=== PATIENT | female | born 1935 | race Caucasian/White ===

== ENCOUNTER 2016-12-17 21:32 | Emergency (ER) | payer OTHER ==
[~2016-12-17] VITALS: Ht 162.6 cm; Wt 98.7 kg
[~2016-12-17 21:32] MED LIST: ARICEPT10 MG PO; BENAZEPRIL HCL40 MG PO; CEFTIN250 MG PO; CELEXA20 MG PO; CRESTOR10 MG PO; DAILY VALUE1 EACH PO; GLUCOPHAGE500 MG PO; HYDROCHLOROTHIA50 MG PO; KEFLEX500 MG PO; LEVAQUIN500 MG PO; LEVOFLOXACIN750 MG PO; LOTENSIN10 MG PO; LOTENSIN20 MG PO; MICROZIDE12.5 M1 PO; NORVASC5 MG PO; PAXIL20 MG PO; XANAX0.25 MG PO
[2016-12-17 22:40] LABS: HEMATOCRIT 32.5 % (36.0-46.0); MCH 31.3 PG (29.0-34.0); MCHC 34.2 G/DL (30.0-36.0); MCV 91.5 FL (83-99); PLATELET COUNT 158 K/uL (156-360); RBC DIS.WIDTH-CV 14.4 % (11.8-14.6); RBC DIS.WIDTH-SD 46.1 % (39-53); RED BLOOD COUNT 3.55 M/uL (3.80-5.20); WHITE BLOOD COUNT 7.4 K/uL (4.1-10.2)
[2016-12-17 22:54] LABS: CHLORIDE 105 mEq/L (99-109); POTASSIUM 4.2 mEq/L (3.7-5.4); SODIUM 140 mEq/L (136-147)
[2016-12-17 22:57] LABS: GLUCOSE 171 mg/dL (70-99)
[2016-12-17 22:58] LABS: ANION GAP 14 MEQ/L (2-14); TOTAL BILIRUBIN 0.4 mg/dL (0.0-1.0)
[2016-12-17 23:00] LABS: ALKALINE PHOSPHATASE 55 IU/L (3-129); GFR ESTIMATE (CALCULATED) 31 mL/min/
[2016-12-17 23:01] LABS: UREA NITROGEN (BUN) 40 mg/dL (9-23)
[2016-12-17 23:02] LABS: DIRECT BILIRUBIN 0.1 mg/dL (0.0-0.3)
[2016-12-17 23:03] LABS: TROP-I INTERPRETATION NEGATIVE; TROPONIN-I < 0.01 ng/mL (0.0-0.30)
[2016-12-17 23:21] LABS: ADD MIUA? YES; BILIRUBIN NEGATIVE; BLOOD NEGATIVE; COLOR YELLOW ((YELLOW)); GLUCOSE (STRIP) NEGATIVE; KETONES NEGATIVE; LEUKOCYTES LARGE; NITRITE POSITIVE; PROTEIN (STRIP) NEGATIVE; SPECIFIC GRAVITY 1.018 (1.000-1.030); UROBILINOGEN 0.2 MG/DL (0.2-1.0)
[2016-12-17 23:59] LABS: BACTERIA 3+; CASTS NONE SEEN /LPF; CRYSTALS NONE SEEN; EPITHELIAL CELLS 1+; MUCUS 1+; RED BLOOD CELLS NONE SEEN /HPF (0-5); UCUL ADDED? YES; WHITE BLOOD CELLS TNTC /HPF (0-5)
[2016-12-18] MEDS ORDERED: LEVAQUIN500 MG PO (02:05)
[2016-12-18 03:42] VITALS: BP 117/52
== END 2016-12-18 03:44 | disposition home or self-care (01) ==
LOC: EME 21:32
PROVIDERS: Emergency Medicine
DX: N30.00 Acute cystitis without hematuria (principal); E86.0 Dehydration; J40 Bronchitis, not specified as acute or chronic; N28.9 Disorder of kidney and ureter, unspecified; F03.90 Unspecified dementia, unspecified severity, without behavioral disturbance, psychotic disturbance, mood disturbance, and anxiety; I10 Essential (primary) hypertension; E78.5 Hyperlipidemia, unspecified
CPT/HCPCS: 70450; 71020; 80048; 80076; 81003; 83880; 84484; 85027; 87077; 87086; 87186; 93005; 94640; 99281; 99285; J1200; J7030

== ENCOUNTER 2017-01-17 19:46 | Emergency (ER) | payer OTHER ==
[~2017-01-17] VITALS: Ht 162.6 cm; Wt 98.2 kg
[2017-01-17 20:56] LABS: BASOPHIL COUNT 0.1 K/uL (0-0.1); EOSINOPHIL (%) 8.4 % (0-5); EOSINOPHIL COUNT 0.6 K/uL (0-0.3); HEMATOCRIT 31.6 % (36.0-46.0); IMMATURE GRANULOCYTE (%) 1.4 % (0.0-0.7); IMMATURE GRANULOCYTE COUNT 1.1 K/uL; LYMPHOCYTE COUNT 1.8 K/uL (1.0-2.8); MCH 31.2 PG (29.0-34.0); MCHC 34.2 G/DL (30.0-36.0); MCV 91.3 FL (83-99); MEAN PLAT.VOLUME 10.1 uM^3 (9.5-12.4); MONOCYTE (%) 6.4 % (3-12); MONOCYTE COUNT 0.5 K/uL (0-0.8); NEUTROPHIL (%) 58.8 % (45-76); NEUTROPHIL COUNT 4.5 K/uL (1.8-6.4); PLATELET COUNT 159 K/uL (156-360); RBC DIS.WIDTH-CV 14.3 % (11.8-14.6); RBC DIS.WIDTH-SD 45.1 % (39-53); RED BLOOD COUNT 3.46 M/uL (3.80-5.20); WHITE BLOOD COUNT 7.6 K/uL (4.1-10.2)
[2017-01-17 21:08] LABS: CHLORIDE 106 mEq/L (99-109); POTASSIUM 4.2 mEq/L (3.7-5.4); SODIUM 140 mEq/L (136-147)
[2017-01-17 21:10] LABS: GLUCOSE 181 mg/dL (70-99)
[2017-01-17 21:12] LABS: ANION GAP 11 MEQ/L (2-14); TOTAL BILIRUBIN 0.1 mg/dL (0.0-1.0)
[2017-01-17 21:14] LABS: ALKALINE PHOSPHATASE 61 IU/L (3-129); GFR ESTIMATE (CALCULATED) 50 mL/min/
[2017-01-17 21:15] LABS: UREA NITROGEN (BUN) 28 mg/dL (9-23)
[2017-01-17 21:19] LABS: TROP-I INTERPRETATION NEGATIVE; TROPONIN-I < 0.01 ng/mL (0.0-0.30)
[2017-01-17 23:21] VITALS: BP 98/53
== END 2017-01-17 23:21 | disposition home or self-care (01) ==
LOC: EME 19:46
PROVIDERS: Emergency Medicine
DX: R79.1 Abnormal coagulation profile (principal); R06.00 Dyspnea, unspecified; F03.90 Unspecified dementia, unspecified severity, without behavioral disturbance, psychotic disturbance, mood disturbance, and anxiety; E78.5 Hyperlipidemia, unspecified; I10 Essential (primary) hypertension; Z88.1 Allergy status to other antibiotic agents
CPT/HCPCS: 71275; 80053; 84484; 85025; 93005; 99281; 99285; J7040

== ENCOUNTER 2017-03-29 20:38 | Inpatient (IN) | payer OTHER ==
[~2017-03-29] VITALS: Ht 165.1 cm; Wt 95.5 kg
[2017-03-29 21:23] LABS: BASOPHIL COUNT 0.1 K/uL (0-0.1); EOSINOPHIL (%) 6.2 % (0-5); EOSINOPHIL COUNT 0.6 K/uL (0-0.3); HEMATOCRIT 40.6 % (36.0-46.0); IMMATURE GRANULOCYTE (%) 1.8 % (0.0-0.7); IMMATURE GRANULOCYTE COUNT 0.2 K/uL; INSTRUMENT ABS NEUTROPHIL CT 6.8 K/uL; LYMPHOCYTE COUNT 1.5 K/uL (1.0-2.8); MCH 31.3 PG (29.0-34.0); MCHC 34.5 G/DL (30.0-36.0); MCV 90.6 FL (83-99); MEAN PLAT.VOLUME 10.1 uM^3 (9.5-12.4); MONOCYTE (%) 7.6 % (3-12); MONOCYTE COUNT 0.8 K/uL (0-0.8); NEUTROPHIL (%) 68.8 % (45-76); NEUTROPHIL COUNT 6.8 K/uL (1.8-6.4); PLATELET COUNT 200 K/uL (156-360); RBC DIS.WIDTH-CV 13.9 % (11.8-14.6); RBC DIS.WIDTH-SD 46.3 % (39-53); RED BLOOD COUNT 4.48 M/uL (3.80-5.20); WHITE BLOOD COUNT 9.9 K/uL (4.1-10.2)
[2017-03-29 21:31] LABS: CHLORIDE 100 mEq/L (99-109); POTASSIUM 4.7 mEq/L (3.7-5.4); SODIUM 133 mEq/L (136-147)
[2017-03-29 21:33] LABS: GLUCOSE 169 mg/dL (70-99)
[2017-03-29 21:34] LABS: ANION GAP 13 MEQ/L (2-14)
[2017-03-29 21:37] LABS: GFR ESTIMATE (CALCULATED) 24 mL/min/
[2017-03-29 21:38] LABS: UREA NITROGEN (BUN) 34 mg/dL (9-23)
[2017-03-29 21:42] LABS: Estimated Average Glucose 143 mg/dL (70-123); HEMOGLOBIN A1c (GLYCOHEMOGLOB) 6.6 % HGB (Below 5.7)
[2017-03-29 21:44] LABS: TROP-I INTERPRETATION NEGATIVE; TROPONIN-I < 0.01 ng/mL (0.0-0.30)
[2017-03-29 21:51] LABS: INTER. NORMALIZED RATIO 1.1; PTT 25.8 (25-32)
[2017-03-29 21:57] LABS: HDL CHOLESTEROL 36 MG/DL (Desirable>=50); LDL CHOLESTEROL 71 mg/dL (Desirable<100); NON-HDL CHOLESTEROL 126 mg/dL (Desirable<160); TOTAL CHOLESTEROL 162 mg/dL (Desirable<200); TRIGLYCERIDES 276 MG/DL (Normal: <150)
[2017-03-29 22:59] LABS: ADD MIUA? YES; BILIRUBIN SMALL; BLOOD LARGE; COLOR AMBER ((YELLOW)); GLUCOSE (STRIP) NEGATIVE; KETONES NEGATIVE; LEUKOCYTES MODERATE; NITRITE NEGATIVE; PROTEIN (STRIP) 100; SPECIFIC GRAVITY 1.019 (1.000-1.030)
[2017-03-29 23:17] LABS: RED BLOOD CELLS 30-40 /HPF (0-5); WHITE BLOOD CELLS TNTC /HPF (0-5)
[2017-03-29 23:18] LABS: BACTERIA 3+ /HPF; MUCUS NONE SEEN /LPF; UCUL ADDED? YES
[2017-03-29 23:19] LABS: CASTS NONE SEEN /LPF; CRYSTALS NONE SEEN; EPITHELIAL CELLS 1+ /HPF
[2017-03-30] VITALS (7 sets, daily range): BP systolic 98–142; BP diastolic 56–78
[2017-03-30] MEDS ORDERED: LISINOPRIL5 MG PO (00:45)
[2017-03-30] MEDS ORDERED: HYDROCHLOROTHIA25 MG PO (00:45)
[2017-03-30] MEDS ORDERED: PROCTOZONE-HC30 GM PR (00:46)
[2017-03-30] MEDS ORDERED: ROSUVASTATIN CA10 MG PO (00:47)
[2017-03-30] MEDS ORDERED: PROMETHAZINE12.5 M1 PO (00:49)
[2017-03-30] MEDS ORDERED: VENTOLIN HFA18 GM IH (00:50)
[2017-03-30] MEDS ORDERED: SILTUSSIN100 MG/51 PO (00:51)
[2017-03-30] MEDS ORDERED: CRANBERRY450 M1 PO (01:32)
[2017-03-30 05:40] LABS: TROP-I INTERPRETATION NEGATIVE; TROPONIN-I < 0.01 ng/mL (0.0-0.30)
[2017-03-30 07:50] LABS: METH RESISTANT S AUREUS PCR POSITIVE (NEGATIVE)
[2017-03-30 07:51] LABS: PROBE CHECK PASS
[2017-03-30 14:16] LABS: TROP-I INTERPRETATION NEGATIVE; TROPONIN-I < 0.01 ng/mL (0.0-0.30)
[2017-03-30 22:14] LABS: TROP-I INTERPRETATION NEGATIVE; TROPONIN-I < 0.01 ng/mL (0.0-0.30)
[2017-03-31 04:06] VITALS: BP 128/60
[2017-03-31 06:46] LABS: ANION GAP 10 MEQ/L (2-14); CHLORIDE 104 MEQ/L (99-109); GFR ESTIMATE (CALCULATED) 33 mL/min/; GLUCOSE 134 mg/dL (70-99); POTASSIUM 4.6 MEQ/L (3.7-5.4); SAMPLE HEMOLYSIS CHECK 0; SAMPLE ICTERIC CHECK 0; SAMPLE LIPEMIA CHECK 0; SODIUM 135 MEQ/L (136-147); UREA NITROGEN (BUN) 37 mg/dL (9-23)
[2017-03-31 07:50] VITALS: BP 133/59
[2017-03-31 12:08] VITALS: BP 93/42
[2017-03-31 16:39] VITALS: BP 137/56
[2017-03-31 17:06] LABS: POINT-OF-CARE METER ID UU14174216
[2017-03-31 20:00] VITALS: BP 119/67
[2017-03-31 23:32] VITALS: BP 139/65
[2017-04-01 05:44] VITALS: BP 145/73
[2017-04-01 07:24] VITALS: BP 124/62
[2017-04-01 07:28] LABS: ANION GAP 10 MEQ/L (2-14); CHLORIDE 104 MEQ/L (99-109); GFR ESTIMATE (CALCULATED) 42 mL/min/; GLUCOSE 127 mg/dL (70-99); POTASSIUM 4.6 MEQ/L (3.7-5.4); SAMPLE HEMOLYSIS CHECK 0; SAMPLE ICTERIC CHECK 0; SAMPLE LIPEMIA CHECK 0; SODIUM 136 MEQ/L (136-147); UREA NITROGEN (BUN) 33 mg/dL (9-23)
[2017-04-01 11:45] VITALS: BP 112/58
[2017-04-01 15:20] VITALS: BP 150/69
[2017-04-01 21:30] VITALS: BP 108/66
[2017-04-02 01:04] VITALS: BP 133/76
[2017-04-02 04:45] VITALS: BP 143/84
[2017-04-02 08:45] VITALS: BP 140/70
[2017-04-02 12:15] VITALS: BP 140/74
[2017-04-02 12:17] LABS: POINT-OF-CARE METER ID UU14174216
[2017-04-02 16:14] VITALS: BP 159/68
[2017-04-02 19:00] VITALS: BP 142/68
[2017-04-02 20:56] LABS: POINT-OF-CARE METER ID UU14174216; POINT-OF-CARE USER ID ENVMNS
[2017-04-03 00:21] VITALS: BP 146/88
[2017-04-03 05:11] VITALS: BP 138/60
[2017-04-03 07:58] LABS: POINT-OF-CARE METER ID UU13113781
[2017-04-03 16:00] VITALS: BP 126/61
[2017-04-03 19:48] VITALS: BP 122/64
[2017-04-03 20:51] LABS: POINT-OF-CARE METER ID UU13113781
[2017-04-03 23:25] VITALS: BP 120/76
[2017-04-04 05:02] VITALS: BP 116/56
[2017-04-04 07:47] LABS: POINT-OF-CARE USER ID NUTSLF44
[2017-04-04 08:00] LABS: ANION GAP 9 MEQ/L (2-14); CHLORIDE 102 MEQ/L (99-109); GFR ESTIMATE (CALCULATED) 56 mL/min/; GLUCOSE 124 mg/dL (70-99); POTASSIUM 4.7 MEQ/L (3.7-5.4); SAMPLE HEMOLYSIS CHECK 0; SAMPLE ICTERIC CHECK 0; SAMPLE LIPEMIA CHECK 0; SODIUM 137 MEQ/L (136-147); UREA NITROGEN (BUN) 32 mg/dL (9-23)
[2017-04-04 08:48] VITALS: BP 131/67
[2017-04-04 11:35] LABS: POINT-OF-CARE METER ID UU13113781; POINT-OF-CARE USER ID NUTSLF44
== END 2017-04-04 13:00 | disposition home or self-care (01) | DRG 690 ==
LOC: EME → EDBD 20:38 → EME 20:38 → 4EAST 03-30 00:44 → EDOF 03-30 00:44 → 4EAST 03-30 01:48
PROVIDERS: Emergency Medicine; Internal Medicine
DX: N30.90 Cystitis, unspecified without hematuria (principal); N17.9 Acute kidney failure, unspecified; J44.9 Chronic obstructive pulmonary disease, unspecified; G30.9 Alzheimer's disease, unspecified; F02.80 Dementia in other diseases classified elsewhere, unspecified severity, without behavioral disturbance, psychotic disturbance, mood disturbance, and anxiety; I10 Essential (primary) hypertension; B96.20 Unspecified Escherichia coli [E. coli] as the cause of diseases classified elsewhere; F32.9 Major depressive disorder, single episode, unspecified; Z22.322 Carrier or suspected carrier of Methicillin resistant Staphylococcus aureus; Z91.81 History of falling; E11.9 Type 2 diabetes mellitus without complications; R00.1 Bradycardia, unspecified
CPT/HCPCS: 70450; 71020; 80048; 80061; 81003; 82948; 83036; 83880; 84484; 85025; 85610; 85730; 87077; 87086; 87186; 87641; 93005; 94640; 99202; 99281; 99285; J0696; J1650; J1815; J7050; J7644

== ENCOUNTER 2017-04-12 22:40 | Inpatient (IN) | payer OTHER ==
[~2017-04-12] VITALS: Ht 165.1 cm; Wt 98.4 kg
[~2017-04-12 22:40] MED LIST changes: +CRANBERRY450 M1 PO; +HYDROCHLOROTHIA25 MG PO; +LISINOPRIL5 MG PO; +PROCTOZONE-HC30 GM PR; +PROMETHAZINE12.5 M1 PO; +ROSUVASTATIN CA10 MG PO; +SILTUSSIN100 MG/51 PO; +VENTOLIN HFA18 GM IH
[2017-04-12 23:53] LABS: PROTHROMBIN TIME 10.4 (9.2-11.2)
[2017-04-12 23:56] LABS: CHLORIDE 100 mEq/L (99-109); POTASSIUM 4.2 mEq/L (3.7-5.4); SODIUM 135 mEq/L (136-147)
[2017-04-12 23:58] LABS: GLUCOSE 155 mg/dL (70-99); HEMATOCRIT 35.1 % (36.0-46.0); MCHC 33.6 G/DL (30.0-36.0); MCV 92.1 FL (83-99); RBC DIS.WIDTH-CV 13.8 % (11.8-14.6); RBC DIS.WIDTH-SD 47.4 % (39-53); RED BLOOD COUNT 3.81 M/uL (3.80-5.20)
[2017-04-12 23:59] LABS: WHITE BLOOD COUNT 13.3 K/uL (4.1-10.2)
[2017-04-13] VITALS (7 sets, daily range): BP systolic 103–162; BP diastolic 54–106
[2017-04-13] LABS: ANION GAP 11 MEQ/L (2-14); TOTAL BILIRUBIN 0.5 mg/dL (0.0-1.0)
[2017-04-13 00:02] LABS: ALKALINE PHOSPHATASE 57 IU/L (3-129); GFR ESTIMATE (CALCULATED) 50 mL/min/
[2017-04-13 00:03] LABS: UREA NITROGEN (BUN) 26 mg/dL (9-23)
[2017-04-13 00:04] LABS: TROP-I INTERPRETATION NEGATIVE; TROPONIN-I < 0.01 ng/mL (0.0-0.30)
[2017-04-13 00:05] LABS: LIPASE 25 U/L (1.0-51.0)
[2017-04-13 00:30] LABS: PLATELET CLUMPS PRESENT - PLATELET COUNT APPEARS ADQ.
[2017-04-13 00:47] LABS: PLATELET COUNT UNABLE TO REPORT K/uL (156-360)
[2017-04-13 01:01] LABS: ADD MIUA? YES; BILIRUBIN NEGATIVE; BLOOD SMALL; COLOR YELLOW ((YELLOW)); GLUCOSE (STRIP) NEGATIVE; KETONES NEGATIVE; LEUKOCYTES LARGE; NITRITE NEGATIVE; PROTEIN (STRIP) 30; SPECIFIC GRAVITY 1.013 (1.000-1.030); UROBILINOGEN 0.2 MG/DL (0.2-1.0)
[2017-04-13 01:24] LABS: BACTERIA RARE /HPF; EPITHELIAL CELLS RARE /HPF; MUCUS TRACE /LPF; RED BLOOD CELLS 0-5 /HPF (0-5); UCUL ADDED? YES; WHITE BLOOD CELLS TNTC /HPF (0-5); WHITE BLOOD CELLS CLUMP FEW /HPF (0-5)
[2017-04-13] MEDS ORDERED: HYDROCHLOROTHIA25 MG PO (04:53)
[2017-04-13] MEDS ORDERED: LIDEX 0.05% OIN15 GM TP (04:54)
[2017-04-13 07:29] LABS: METH RESISTANT S AUREUS PCR POSITIVE (NEGATIVE); PROBE CHECK PASS
[2017-04-13 10:19] LABS: D-DIMER ELISA 1.04 mg/L FEU (< 0.57)
[2017-04-13 10:28] LABS: POINT-OF-CARE METER ID UU14149397
[2017-04-14 03:37] VITALS: BP 102/53
[2017-04-14 05:54] LABS: HEMATOCRIT 30.2 % (36.0-46.0); MCH 30.9 PG (29.0-34.0); MCHC 33.4 G/DL (30.0-36.0); MCV 92.4 FL (83-99); MEAN PLAT.VOLUME 10.7 uM^3 (9.5-12.4); RBC DIS.WIDTH-CV 13.9 % (11.8-14.6); RBC DIS.WIDTH-SD 47.3 % (39-53); RED BLOOD COUNT 3.27 M/uL (3.80-5.20); WHITE BLOOD COUNT 13.5 K/uL (4.1-10.2)
[2017-04-14 06:34] LABS: PLATELET COUNT 109 K/uL (156-360)
[2017-04-14 06:43] LABS: POINT-OF-CARE METER ID UU14149397
[2017-04-14 07:00] LABS: ALKALINE PHOSPHATASE 39 IU/L (3-129); ANION GAP 12 MEQ/L (2-14); CHLORIDE 100 MEQ/L (99-109); GFR ESTIMATE (CALCULATED) 46 mL/min/; GLUCOSE 193 mg/dL (70-99); POTASSIUM 4.3 MEQ/L (3.7-5.4); SAMPLE HEMOLYSIS CHECK 1; SAMPLE ICTERIC CHECK 0; SAMPLE LIPEMIA CHECK 0; SODIUM 133 MEQ/L (136-147); TOTAL BILIRUBIN 0.4 MG/DL (0.0-1.0); UREA NITROGEN (BUN) 34 mg/dL (9-23)
[2017-04-14 08:30] VITALS: BP 129/60
[2017-04-14 12:14] VITALS: BP 130/61
[2017-04-14 12:23] LABS: POINT-OF-CARE METER ID UU14149397
[2017-04-14 16:13] VITALS: BP 145/63
[2017-04-14 19:46] VITALS: BP 153/71
[2017-04-14 21:43] LABS: POINT-OF-CARE METER ID UU14149397
[2017-04-15] VITALS (7 sets, daily range): BP systolic 135–148; BP diastolic 65–87
[2017-04-15 07:46] LABS: POINT-OF-CARE METER ID UU14149397
[2017-04-15 12:00] LABS: POINT-OF-CARE METER ID UU14149397
[2017-04-16 03:44] VITALS: BP 142/83
[2017-04-16 07:57] VITALS: BP 184/89
[2017-04-16] MEDS ORDERED: PEN-VEE K,VEET250 MG PO (08:12)
[2017-04-16] MEDS ORDERED: PREDNISONE10 MG PO (08:12)
[2017-04-16 11:08] VITALS: BP 132/74
[2017-04-16 11:35] LABS: POINT-OF-CARE METER ID UU14188577
== END 2017-04-16 16:14 | disposition home or self-care (01) | DRG 871 ==
LOC: EME 22:40 → 3EAST 04-13 02:30 → EDOF 04-13 02:30 → 3EAST 04-13 03:38
PROVIDERS: Emergency Medicine; Internal Medicine
DX: A41.9 Sepsis, unspecified organism (principal); N39.0 Urinary tract infection, site not specified; E87.2 Acidosis; J18.9 Pneumonia, unspecified organism; J44.1 Chronic obstructive pulmonary disease with (acute) exacerbation; F03.90 Unspecified dementia, unspecified severity, without behavioral disturbance, psychotic disturbance, mood disturbance, and anxiety; I10 Essential (primary) hypertension; E78.5 Hyperlipidemia, unspecified; B95.2 Enterococcus as the cause of diseases classified elsewhere; E11.9 Type 2 diabetes mellitus without complications; R41.82 Altered mental status, unspecified; F32.9 Major depressive disorder, single episode, unspecified; N30.91 Cystitis, unspecified with hematuria; G30.9 Alzheimer's disease, unspecified; F02.80 Dementia in other diseases classified elsewhere, unspecified severity, without behavioral disturbance, psychotic disturbance, mood disturbance, and anxiety; Z87.891 Personal history of nicotine dependence
CPT/HCPCS: 70450; 71010; 71275; 76770; 80053; 81003; 82565; 82948; 83605; 83690; 83880; 84484; 85027; 85379; 85610; 85730; 87040; 87077; 87086; 87186; 87641; 93005; 99202; 99281; 99284; J0696; J1815; J2543; J2920; J2930; J3370; J7030; J7050; J7512

== ENCOUNTER 2017-05-01 16:37 | Inpatient (IN) | payer OTHER ==
[~2017-05-01] VITALS: Ht 162.6 cm; Wt 100.1 kg
[~2017-05-01 16:37] MED LIST changes: +LIDEX 0.05% OIN15 GM TP; +PEN-VEE K,VEET250 MG PO; +PREDNISONE10 MG PO
[2017-05-01 17:02] LABS: POINT-OF-CARE METER ID UU13113702
[2017-05-01 17:21] LABS: ADD MIUA? YES; BILIRUBIN NEGATIVE; BLOOD NEGATIVE; COLOR YELLOW ((YELLOW)); GLUCOSE (STRIP) NEGATIVE; KETONES 5; LEUKOCYTES MODERATE; NITRITE NEGATIVE; PROTEIN (STRIP) 100; UROBILINOGEN 0.2 MG/DL (0.2-1.0)
[2017-05-01 17:24] LABS: BACTERIA 3+ /HPF; EPITHELIAL CELLS RARE /HPF; HYALINE CASTS 15-20 /LPF; MUCUS TRACE /LPF; UCUL ADDED? YES; WHITE BLOOD CELLS TNTC /HPF (0-5); WHITE BLOOD CELLS CLUMP FEW /HPF (0-5)
[2017-05-01] MEDS ORDERED: HYDROCORTISONE30 G2 TP (18:13)
[2017-05-01] MEDS ORDERED: HYDROXYZINE HCL25 MG PO (18:16)
[2017-05-01] MEDS ORDERED: LIDEX 0.05% CRE60 GM TP (18:16)
[2017-05-01 19:04] LABS: EOSINOPHIL (%) 0.1 % (0-5); HEMATOCRIT 30.8 % (36.0-46.0); IMMATURE GRANULOCYTE (%) 2.5 % (0.0-0.7); IMMATURE GRANULOCYTE COUNT 0.4 K/uL; INSTRUMENT ABS NEUTROPHIL CT 14.7 K/uL; LYMPHOCYTE COUNT 0.7 K/uL (1.0-2.8); MCH 30.7 PG (29.0-34.0); MCHC 33.4 G/DL (30.0-36.0); MCV 91.9 FL (83-99); MEAN PLAT.VOLUME 9.9 uM^3 (9.5-12.4); MONOCYTE (%) 4.9 % (3-12); MONOCYTE COUNT 0.8 K/uL (0-0.8); NEUTROPHIL (%) 88.1 % (45-76); NEUTROPHIL COUNT 14.7 K/uL (1.8-6.4); PLATELET COUNT 117 K/uL (156-360); RBC DIS.WIDTH-CV 13.6 % (11.8-14.6); RBC DIS.WIDTH-SD 45.7 % (39-53); RED BLOOD COUNT 3.35 M/uL (3.80-5.20); WHITE BLOOD COUNT 16.7 K/uL (4.1-10.2)
[2017-05-01 19:17] LABS: INTER. NORMALIZED RATIO 1.2; PTT 29.4 (25-32)
[2017-05-01 19:26] LABS: TROP-I INTERPRETATION NEGATIVE; TROPONIN-I 0.01 ng/mL (0.0-0.30)
[2017-05-01 19:28] LABS: CHLORIDE 104 mEq/L (99-109); POTASSIUM 4.1 mEq/L (3.7-5.4); SODIUM 140 mEq/L (136-147)
[2017-05-01 19:30] LABS: GLUCOSE 240 mg/dL (70-99)
[2017-05-01 19:31] LABS: ANION GAP 13 MEQ/L (2-14)
[2017-05-01 19:32] LABS: TOTAL BILIRUBIN 0.9 mg/dL (0.0-1.0)
[2017-05-01 19:34] LABS: ALKALINE PHOSPHATASE 45 IU/L (3-129); GFR ESTIMATE (CALCULATED) 33 mL/min/
[2017-05-01 19:35] LABS: UREA NITROGEN (BUN) 23 mg/dL (9-23)
[2017-05-01 19:37] LABS: LIPASE 4 U/L (1.0-51.0)
[2017-05-01 20:37] VITALS: BP 130/85
[2017-05-01 20:41] VITALS: BP 130/85
[2017-05-01 22:50] LABS: BASE EXCESS -5.2 mEq/L (-3 to +3); BICARBONATE 18.6 mEq/L (22-26); CARBOXY HGB 2.1 % (0-5); METHEMOGLOBIN 1.4 % (0-1.5); PCO2 30 mm Hg (35-45); PO2 80 mm Hg (80-100)
[2017-05-01 22:51] LABS: COMMENTS - BLOOD GASES C+A+; DEVICE NC; O2 FLOW 2 L/MIN; SITE RR
[2017-05-01 23:34] VITALS: BP 103/51
[2017-05-01 23:53] LABS: POINT-OF-CARE METER ID UU13113725; POINT-OF-CARE USER ID STWHLR41
[2017-05-02 01:30] VITALS: BP 102/60
[2017-05-02 06:19] LABS: ALKALINE PHOSPHATASE 51 IU/L (3-129); ANION GAP 15 MEQ/L (2-14); CHLORIDE 106 MEQ/L (99-109); GFR ESTIMATE (CALCULATED) 23 mL/min/; GLUCOSE 302 mg/dL (70-99); POTASSIUM 4.1 MEQ/L (3.7-5.4); SAMPLE HEMOLYSIS CHECK 0; SAMPLE ICTERIC CHECK 0; SAMPLE LIPEMIA CHECK 0; SODIUM 141 MEQ/L (136-147); TOTAL BILIRUBIN 0.8 MG/DL (0.0-1.0); UREA NITROGEN (BUN) 31 mg/dL (9-23)
[2017-05-02 06:56] LABS: HEMATOCRIT 30.9 % (36.0-46.0); MCH 32.1 PG (29.0-34.0); MCHC 34.6 G/DL (30.0-36.0); MCV 92.8 FL (83-99); MEAN PLAT.VOLUME 11.4 uM^3 (9.5-12.4); PLATELET COUNT 95 K/uL (156-360); RBC DIS.WIDTH-SD 47.5 % (39-53); RED BLOOD COUNT 3.33 M/uL (3.80-5.20); WHITE BLOOD COUNT 19.3 K/uL (4.1-10.2)
[2017-05-02 07:24] LABS: METH RESISTANT S AUREUS PCR POSITIVE (NEGATIVE)
[2017-05-02 07:25] VITALS: BP 110/57
[2017-05-02 07:27] LABS: PROBE CHECK PASS
[2017-05-02 11:50] LABS: POINT-OF-CARE METER ID UU13113725
[2017-05-02 15:20] VITALS: BP 112/59
[2017-05-02 17:08] LABS: POINT-OF-CARE METER ID UU13113725
[2017-05-02 20:43] LABS: POINT-OF-CARE METER ID UU13113725
[2017-05-02 22:16] VITALS: BP 107/55
[2017-05-03 05:31] LABS: POINT-OF-CARE METER ID UU13113725
[2017-05-03 07:15] LABS: HEMATOCRIT 26.1 % (36.0-46.0); MCH 31.7 PG (29.0-34.0); MCHC 33.7 G/DL (30.0-36.0); MCV 93.9 FL (83-99); MEAN PLAT.VOLUME 11.3 uM^3 (9.5-12.4); PLATELET COUNT 77 K/uL (156-360); RBC DIS.WIDTH-CV 14.2 % (11.8-14.6); RBC DIS.WIDTH-SD 48.3 % (39-53); RED BLOOD COUNT 2.78 M/uL (3.80-5.20)
[2017-05-03 07:25] VITALS: BP 121/63
[2017-05-03 08:04] LABS: ABS NEUTROPHIL COUNT 10.5; BURR CELLS 3+; EOSINOPHIL ABS CT 0; INSTRUMENT ABS NEUTROPHIL CT 8.9 K/uL; LYMPHOCYTES 3.5 % (15.0-45.0); OVALOCYTES 1+; PLAT.SUFFICIENCY DECREASED; POIKILOCYTOSIS 3+; SEG.NEUTROPHILS 88.6 % (46.0-76.0)
[2017-05-03 08:24] LABS: ALKALINE PHOSPHATASE 44 IU/L (3-129); ANION GAP 11 MEQ/L (2-14); CHLORIDE 104 MEQ/L (99-109); GFR ESTIMATE (CALCULATED) 25 mL/min/; GLUCOSE 287 mg/dL (70-99); POTASSIUM 4.4 MEQ/L (3.7-5.4); SAMPLE HEMOLYSIS CHECK 0; SAMPLE ICTERIC CHECK 0; SAMPLE LIPEMIA CHECK 0; SODIUM 137 MEQ/L (136-147); UREA NITROGEN (BUN) 43 mg/dL (9-23)
[2017-05-03 08:30] LABS: TOTAL BILIRUBIN 0.4 MG/DL (0.0-1.0)
[2017-05-03 12:07] LABS: POINT-OF-CARE METER ID UU13113725
[2017-05-03 13:34] LABS: ANION GAP 19 MEQ/L (2-14); CHLORIDE 99 mEq/L (99-109); CREATININE 1.5 mg/dL (0.6-1.3); GLUCOSE 288 mg/dL (70-99); ISTAT DEVICE 369301; POTASSIUM > 6.0 mEq/L (3.7-5.4); SODIUM 135 mEq/L (136-147); UREA NITROGEN (BUN) 34 mg/dL (9-23)
[2017-05-03 21:12] LABS: POINT-OF-CARE METER ID UU13113725
[2017-05-03 22:58] VITALS: BP 136/70
[2017-05-04 06:33] LABS: EOSINOPHIL (%) 0 % (0-5); HEMATOCRIT 27.4 % (36.0-46.0); IMMATURE GRANULOCYTE (%) 3.7 % (0.0-0.7); IMMATURE GRANULOCYTE COUNT 0.4 K/uL; INSTRUMENT ABS NEUTROPHIL CT 9.7 K/uL; LYMPHOCYTE COUNT 0.5 K/uL (1.0-2.8); MCH 30.4 PG (29.0-34.0); MCHC 32.8 G/DL (30.0-36.0); MCV 92.6 FL (83-99); MEAN PLAT.VOLUME 11.6 uM^3 (9.5-12.4); MONOCYTE (%) 2.5 % (3-12); MONOCYTE COUNT 0.3 K/uL (0-0.8); NEUTROPHIL (%) 88.8 % (45-76); NEUTROPHIL COUNT 9.7 K/uL (1.8-6.4); PLATELET COUNT 88 K/uL (156-360); RBC DIS.WIDTH-SD 47.9 % (39-53); RED BLOOD COUNT 2.96 M/uL (3.80-5.20); WHITE BLOOD COUNT 10.9 K/uL (4.1-10.2)
[2017-05-04 07:00] LABS: ANION GAP 8 MEQ/L (2-14); CHLORIDE 108 MEQ/L (99-109); GFR ESTIMATE (CALCULATED) 29 mL/min/; GLUCOSE 185 mg/dL (70-99); POTASSIUM 4.3 MEQ/L (3.7-5.4); SAMPLE HEMOLYSIS CHECK 0; SAMPLE ICTERIC CHECK 0; SAMPLE LIPEMIA CHECK 0; SODIUM 140 MEQ/L (136-147); UREA NITROGEN (BUN) 49 mg/dL (9-23)
[2017-05-04 07:03] LABS: ALKALINE PHOSPHATASE 44 IU/L (3-129); ANION GAP 8 MEQ/L (2-14); CHLORIDE 108 MEQ/L (99-109); GFR ESTIMATE (CALCULATED) 31 mL/min/; GLUCOSE 181 mg/dL (70-99); POTASSIUM 4.3 MEQ/L (3.7-5.4); SAMPLE HEMOLYSIS CHECK 0; SAMPLE ICTERIC CHECK 0; SAMPLE LIPEMIA CHECK 0; SODIUM 138 MEQ/L (136-147); TOTAL BILIRUBIN 0.4 MG/DL (0.0-1.0); UREA NITROGEN (BUN) 49 mg/dL (9-23)
[2017-05-04 08:09] VITALS: BP 163/77
[2017-05-04 17:16] VITALS: BP 174/77
[2017-05-04 21:55] LABS: POINT-OF-CARE METER ID UU13113725
[2017-05-05] VITALS: BP 136/90
[2017-05-05 06:37] LABS: POINT-OF-CARE METER ID UU13113725
[2017-05-05 07:34] LABS: ANION GAP 10 MEQ/L (2-14); CHLORIDE 107 MEQ/L (99-109); GFR ESTIMATE (CALCULATED) 38 mL/min/; GLUCOSE 225 mg/dL (70-99); POTASSIUM 4.2 MEQ/L (3.7-5.4); SAMPLE HEMOLYSIS CHECK 0; SAMPLE ICTERIC CHECK 0; SAMPLE LIPEMIA CHECK 0; SODIUM 137 MEQ/L (136-147); UREA NITROGEN (BUN) 51 mg/dL (9-23)
[2017-05-05 07:55] VITALS: BP 182/81
[2017-05-05 12:49] LABS: POINT-OF-CARE METER ID UU13113725
[2017-05-05 17:57] VITALS: BP 190/81
[2017-05-05 20:56] VITALS: BP 144/70
[2017-05-05 21:45] LABS: POINT-OF-CARE METER ID UU13113725
[2017-05-06 00:05] VITALS: BP 160/72
[2017-05-06 07:02] VITALS: BP 158/74
[2017-05-06 07:19] LABS: ANION GAP 11 MEQ/L (2-14); CHLORIDE 106 MEQ/L (99-109); POTASSIUM 4.1 MEQ/L (3.7-5.4); SAMPLE HEMOLYSIS CHECK 0; SAMPLE ICTERIC CHECK 0; SAMPLE LIPEMIA CHECK 0; SODIUM 136 MEQ/L (136-147)
[2017-05-06 07:24] LABS: GFR ESTIMATE (CALCULATED) 46 mL/min/; GLUCOSE 261 mg/dL (70-99); UREA NITROGEN (BUN) 46 mg/dL (9-23)
[2017-05-06 11:08] LABS: POINT-OF-CARE METER ID UU13113725
[2017-05-06 16:00] VITALS: BP 152/72
[2017-05-07] VITALS: BP 169/72
[2017-05-07 07:49] VITALS: BP 168/70
[2017-05-07 16:16] VITALS: BP 130/72
[2017-05-07 23:00] VITALS: BP 137/72
[2017-05-08 05:57] LABS: POINT-OF-CARE METER ID UU13113725
[2017-05-08 09:13] VITALS: BP 154/77
[2017-05-08 13:04] LABS: ANION GAP 9 MEQ/L (2-14); CHLORIDE 102 MEQ/L (99-109); GFR ESTIMATE (CALCULATED) 56 mL/min/; GLUCOSE 213 mg/dL (70-99); POTASSIUM 3.9 MEQ/L (3.7-5.4); SAMPLE HEMOLYSIS CHECK 0; SAMPLE ICTERIC CHECK 0; SAMPLE LIPEMIA CHECK 0; SODIUM 137 MEQ/L (136-147); UREA NITROGEN (BUN) 39 mg/dL (9-23)
[2017-05-08 17:03] LABS: POINT-OF-CARE METER ID UU13113725
[2017-05-08 17:31] VITALS: BP 151/70
[2017-05-08 20:45] LABS: POINT-OF-CARE METER ID UU13113725
[2017-05-08 22:59] VITALS: BP 141/75
[2017-05-09 09:09] LABS: ANION GAP 11 MEQ/L (2-14); CHLORIDE 103 MEQ/L (99-109); GFR ESTIMATE (CALCULATED) > 59 mL/min/; POTASSIUM 3.9 MEQ/L (3.7-5.4); SAMPLE HEMOLYSIS CHECK 0; SAMPLE ICTERIC CHECK 0; SAMPLE LIPEMIA CHECK 0; SODIUM 138 MEQ/L (136-147); UREA NITROGEN (BUN) 34 mg/dL (9-23)
[2017-05-09 09:12] LABS: GLUCOSE 96 mg/dL (70-99)
[2017-05-09 10:23] VITALS: BP 160/74
[2017-05-09 17:37] VITALS: BP 154/79
[2017-05-10 05:55] LABS: POINT-OF-CARE METER ID UU13113725
[2017-05-10 07:22] VITALS: BP 146/67
[2017-05-10 15:49] VITALS: BP 134/63
[2017-05-11 00:25] VITALS: BP 144/63
[2017-05-11 06:45] VITALS: BP 131/67
[2017-05-11] MEDS ORDERED: PREDNISONE10 MG PO (08:06)
[2017-05-11] MEDS ORDERED: LEVEMIR FL100 UNIT/1 SC (08:07)
== END 2017-05-11 10:38 | DRG 871 ==
LOC: EME 16:37 → 5EAST 18:00 → EDOF 18:00 → 5EAST 20:28
PROVIDERS: Emergency Medicine; Internal Medicine; Internal Medicine Nephrology
DX: A41.59 Other Gram-negative sepsis (principal); B96.1 Klebsiella pneumoniae [K. pneumoniae] as the cause of diseases classified elsewhere; J44.1 Chronic obstructive pulmonary disease with (acute) exacerbation; N12 Tubulo-interstitial nephritis, not specified as acute or chronic; N18.3 Chronic kidney disease, stage 3 (moderate); E66.01 Morbid (severe) obesity due to excess calories; E78.5 Hyperlipidemia, unspecified; G30.8 Other Alzheimer's disease; F02.80 Dementia in other diseases classified elsewhere, unspecified severity, without behavioral disturbance, psychotic disturbance, mood disturbance, and anxiety; F05 Delirium due to known physiological condition; Z66 Do not resuscitate; R65.20 Severe sepsis without septic shock; J96.00 Acute respiratory failure, unspecified whether with hypoxia or hypercapnia; I13.0 Hypertensive heart and chronic kidney disease with heart failure and stage 1 through stage 4 chronic kidney disease, or unspecified chronic kidney disease; G93.40 Encephalopathy, unspecified; F32.9 Major depressive disorder, single episode, unspecified; Z16.24 Resistance to multiple antibiotics; I50.30 Unspecified diastolic (congestive) heart failure; E87.2 Acidosis; K76.0 Fatty (change of) liver, not elsewhere classified; N17.0 Acute kidney failure with tubular necrosis; E66.9 Obesity, unspecified; Z68.37 Body mass index [BMI] 37.0-37.9, adult; Z87.891 Personal history of nicotine dependence; Z87.440 Personal history of urinary (tract) infections; Z79.84 Long term (current) use of oral hypoglycemic drugs; Z90.710 Acquired absence of both cervix and uterus; Z82.0 Family history of epilepsy and other diseases of the nervous system
CPT/HCPCS: 36600; 70450; 71010; 76705; 76770; 80047; 80048; 80053; 80069; 81003; 82803; 82948; 83605; 83690; 83880; 84100; 84484; 84999; 85025; 85027; 85610; 85730; 87040; 87077; 87086; 87186; 87641; 87801; 93005; 93306; 93971; 94640; 94640 76; 94760; 94799; 97530 GO; 99202; 99281; 99285; J0714; J1650; J1815; J2310; J2405; J2543; J2920; J3370; J7030; J7050; J7512

== ENCOUNTER 2017-06-30 20:42 | Inpatient (IN) | payer OTHER ==
[~2017-06-30] VITALS: Ht 162.6 cm; Wt 93.6 kg
[~2017-06-30 20:42] MED LIST changes: +HYDROCORTISONE30 G2 TP; +HYDROXYZINE HCL25 MG PO; +LEVEMIR FL100 UNIT/1 SC; +LIDEX 0.05% CRE60 GM TP; +LISINOPRIL10 MG PO; -LISINOPRIL5 MG PO
[2017-06-30 21:36] LABS: ADD MIUA? YES; BILIRUBIN NEGATIVE; BLOOD SMALL; GLUCOSE (STRIP) NEGATIVE; KETONES NEGATIVE; LEUKOCYTES MODERATE; NITRITE POSITIVE; PROTEIN (STRIP) 100; SPECIFIC GRAVITY 1.011 (1.000-1.030); UROBILINOGEN 0.2 MG/DL (0.2-1.0)
[2017-06-30 21:40] LABS: HEMATOCRIT 27.3 % (36.0-46.0); MCH 29.9 PG (29.0-34.0); MCHC 33.3 G/DL (30.0-36.0); MCV 89.8 FL (83-99); MEAN PLAT.VOLUME 9.4 uM^3 (9.5-12.4); PLATELET COUNT 176 K/uL (156-360); RBC DIS.WIDTH-CV 15.1 % (11.8-14.6); RBC DIS.WIDTH-SD 49.2 % (39-53); RED BLOOD COUNT 3.04 M/uL (3.80-5.20); WHITE BLOOD COUNT 11.6 K/uL (4.1-10.2)
[2017-06-30 21:49] LABS: COLOR YELLOW ((YELLOW))
[2017-06-30 21:50] LABS: BACTERIA 2+ /HPF; CASTS NONE SEEN /LPF; CRYSTALS NONE SEEN; EPITHELIAL CELLS NONE SEEN /HPF; MUCUS NONE SEEN /LPF; RED BLOOD CELLS 0-5 /HPF (0-5); UCUL ADDED? YES; WHITE BLOOD CELLS TNTC /HPF (0-5)
[2017-06-30 21:53] LABS: CHLORIDE 104 mEq/L (99-109); POTASSIUM 3.4 mEq/L (3.7-5.4); SODIUM 138 mEq/L (136-147)
[2017-06-30 21:54] LABS: GLUCOSE 140 mg/dL (70-99)
[2017-06-30 21:56] LABS: ANION GAP 12 MEQ/L (2-14)
[2017-06-30 21:58] LABS: GFR ESTIMATE (CALCULATED) 33 mL/min/
[2017-06-30 21:59] LABS: UREA NITROGEN (BUN) 25 mg/dL (9-23)
[2017-06-30] MEDS ORDERED: LANTUS 10100 UNITS/ SC ×2 (23:12)
[2017-06-30] MEDS ORDERED: ADVAIR 250/501 DISK IH (23:17)
[2017-06-30] MEDS ORDERED: NOVOLOG PE100 UNITS/ SC (23:20)
[2017-07-01 05:55] LABS: EOSINOPHIL (%) 5.3 % (0-5); EOSINOPHIL COUNT 0.5 K/uL (0-0.3); HEMATOCRIT 25.9 % (36.0-46.0); IMMATURE GRANULOCYTE (%) 3.5 % (0.0-0.7); IMMATURE GRANULOCYTE COUNT 0.3 K/uL; INSTRUMENT ABS NEUTROPHIL CT 6.2 K/uL; LYMPHOCYTE COUNT 1.6 K/uL (1.0-2.8); MCH 30.2 PG (29.0-34.0); MCHC 33.2 G/DL (30.0-36.0); MCV 90.9 FL (83-99); MEAN PLAT.VOLUME 10.2 uM^3 (9.5-12.4); MONOCYTE (%) 8.5 % (3-12); MONOCYTE COUNT 0.8 K/uL (0-0.8); NEUTROPHIL (%) 65.8 % (45-76); NEUTROPHIL COUNT 6.2 K/uL (1.8-6.4); PLATELET COUNT 160 K/uL (156-360); RBC DIS.WIDTH-SD 49.1 % (39-53); RED BLOOD COUNT 2.85 M/uL (3.80-5.20); WHITE BLOOD COUNT 9.4 K/uL (4.1-10.2)
[2017-07-01 06:18] LABS: ALKALINE PHOSPHATASE 48 IU/L (3-129); ANION GAP 10 MEQ/L (2-14); CHLORIDE 109 MEQ/L (99-109); GFR ESTIMATE (CALCULATED) 38 mL/min/; GLUCOSE 124 mg/dL (70-99); POTASSIUM 3.3 MEQ/L (3.7-5.4); SAMPLE HEMOLYSIS CHECK 0; SAMPLE ICTERIC CHECK 0; SAMPLE LIPEMIA CHECK 0; SODIUM 143 MEQ/L (136-147); TOTAL BILIRUBIN 0.5 MG/DL (0.0-1.0); UREA NITROGEN (BUN) 20 mg/dL (9-23)
[2017-07-01 07:47] VITALS: BP 154/66
[2017-07-01 10:56] VITALS: BP 116/55
[2017-07-01 15:20] VITALS: BP 163/66
[2017-07-01 19:26] VITALS: BP 158/76
[2017-07-02 01:11] VITALS: BP 130/61
[2017-07-02 05:03] VITALS: BP 128/60
[2017-07-02 06:03] LABS: BASOPHIL COUNT 0.1 K/uL (0-0.1); EOSINOPHIL (%) 10.4 % (0-5); EOSINOPHIL COUNT 0.7 K/uL (0-0.3); HEMATOCRIT 24.6 % (36.0-46.0); IMMATURE GRANULOCYTE (%) 3.7 % (0.0-0.7); IMMATURE GRANULOCYTE COUNT 0.3 K/uL; INSTRUMENT ABS NEUTROPHIL CT 3.8 K/uL; LYMPHOCYTE COUNT 1.5 K/uL (1.0-2.8); MCH 30.5 PG (29.0-34.0); MCHC 33.7 G/DL (30.0-36.0); MCV 90.4 FL (83-99); MEAN PLAT.VOLUME 9.9 uM^3 (9.5-12.4); MONOCYTE (%) 8.4 % (3-12); MONOCYTE COUNT 0.6 K/uL (0-0.8); NEUTROPHIL (%) 54.8 % (45-76); NEUTROPHIL COUNT 3.8 K/uL (1.8-6.4); PLATELET COUNT 130 K/uL (156-360); RBC DIS.WIDTH-CV 15.4 % (11.8-14.6); RED BLOOD COUNT 2.72 M/uL (3.80-5.20); WHITE BLOOD COUNT 6.9 K/uL (4.1-10.2)
[2017-07-02 06:41] LABS: ANION GAP 7 MEQ/L (2-14); CHLORIDE 112 MEQ/L (99-109); GFR ESTIMATE (CALCULATED) 42 mL/min/; GLUCOSE 98 mg/dL (70-99); SAMPLE HEMOLYSIS CHECK 0; SAMPLE ICTERIC CHECK 0; SAMPLE LIPEMIA CHECK 0; SODIUM 144 MEQ/L (136-147); UREA NITROGEN (BUN) 14 mg/dL (9-23)
[2017-07-02 06:53] LABS: POTASSIUM 4.1 MEQ/L (3.7-5.4)
[2017-07-02 07:22] VITALS: BP 158/72
[2017-07-02 16:11] VITALS: BP 124/60
[2017-07-02 20:29] VITALS: BP 159/67
[2017-07-02 21:44] LABS: POINT-OF-CARE METER ID UU13113725
[2017-07-02 23:08] VITALS: BP 127/55
[2017-07-03 03:30] VITALS: BP 119/61
[2017-07-03 05:57] LABS: POINT-OF-CARE METER ID UU13113725
[2017-07-03 11:27] VITALS: BP 1448/72
[2017-07-03 15:24] VITALS: BP 124/70
[2017-07-03 15:28] LABS: POINT-OF-CARE METER ID UU13113725
[2017-07-03 19:00] VITALS: BP 123/58
[2017-07-03 22:57] VITALS: BP 110/51
[2017-07-04 03:43] VITALS: BP 111/76
[2017-07-04 05:53] LABS: POINT-OF-CARE METER ID UU13113725
[2017-07-04 06:24] LABS: BASOPHIL COUNT 0.1 K/uL (0-0.1); EOSINOPHIL (%) 8.7 % (0-5); EOSINOPHIL COUNT 0.6 K/uL (0-0.3); HEMATOCRIT 25.7 % (36.0-46.0); IMMATURE GRANULOCYTE COUNT 0.3 K/uL; INSTRUMENT ABS NEUTROPHIL CT 4.1 K/uL; LYMPHOCYTE COUNT 1.7 K/uL (1.0-2.8); MCH 29.8 PG (29.0-34.0); MCHC 33.1 G/DL (30.0-36.0); MCV 90.2 FL (83-99); MONOCYTE (%) 7.3 % (3-12); MONOCYTE COUNT 0.5 K/uL (0-0.8); NEUTROPHIL (%) 56.2 % (45-76); NEUTROPHIL COUNT 4.1 K/uL (1.8-6.4); RBC DIS.WIDTH-CV 15.3 % (11.8-14.6); RBC DIS.WIDTH-SD 50.4 % (39-53); RED BLOOD COUNT 2.85 M/uL (3.80-5.20); WHITE BLOOD COUNT 7.3 K/uL (4.1-10.2)
[2017-07-04 06:48] LABS: ANION GAP 8 MEQ/L (2-14); CHLORIDE 109 MEQ/L (99-109); POTASSIUM 4.2 MEQ/L (3.7-5.4); SAMPLE HEMOLYSIS CHECK 0; SAMPLE ICTERIC CHECK 0; SAMPLE LIPEMIA CHECK 0; SODIUM 140 MEQ/L (136-147)
[2017-07-04 06:54] LABS: GFR ESTIMATE (CALCULATED) 42 mL/min/; GLUCOSE 114 mg/dL (70-99); UREA NITROGEN (BUN) 20 mg/dL (9-23)
[2017-07-04 06:59] LABS: MEAN PLAT.VOLUME 10.3 uM^3 (9.5-12.4); PLAT.SUFFICIENCY ADEQUATE; PLATELET COUNT 146 K/uL (156-360)
[2017-07-04 07:09] VITALS: BP 129/65
[2017-07-04 11:52] LABS: POINT-OF-CARE METER ID UU13113725
[2017-07-04 12:03] VITALS: BP 118/62
[2017-07-04 16:08] VITALS: BP 117/70
[2017-07-04 18:50] VITALS: BP 118/58
[2017-07-04 21:07] LABS: POINT-OF-CARE METER ID UU13113725
[2017-07-04 22:35] VITALS: BP 112/55
[2017-07-05 04:00] VITALS: BP 122/74
[2017-07-05 06:33] LABS: POINT-OF-CARE METER ID UU13113725; POINT-OF-CARE USER ID AHSUCEG
[2017-07-05 06:54] LABS: BASOPHIL COUNT 0.1 K/uL (0-0.1); EOSINOPHIL (%) 8.3 % (0-5); EOSINOPHIL COUNT 0.7 K/uL (0-0.3); HEMATOCRIT 27.9 % (36.0-46.0); IMMATURE GRANULOCYTE (%) 3.6 % (0.0-0.7); IMMATURE GRANULOCYTE COUNT 0.3 K/uL; INSTRUMENT ABS NEUTROPHIL CT 4.6 K/uL; LYMPHOCYTE COUNT 1.7 K/uL (1.0-2.8); MCH 30.2 PG (29.0-34.0); MCHC 32.3 G/DL (30.0-36.0); MCV 93.6 FL (83-99); MEAN PLAT.VOLUME 10.7 uM^3 (9.5-12.4); MONOCYTE (%) 7.4 % (3-12); MONOCYTE COUNT 0.6 K/uL (0-0.8); NEUTROPHIL (%) 58.4 % (45-76); NEUTROPHIL COUNT 4.6 K/uL (1.8-6.4); PLATELET COUNT 161 K/uL (156-360); RBC DIS.WIDTH-CV 15.5 % (11.8-14.6); RBC DIS.WIDTH-SD 52.6 % (39-53); RED BLOOD COUNT 2.98 M/uL (3.80-5.20)
[2017-07-05 07:02] LABS: ANION GAP 13 MEQ/L (2-14); CHLORIDE 107 MEQ/L (99-109); GFR ESTIMATE (CALCULATED) 38 mL/min/; GLUCOSE 103 mg/dL (70-99); SAMPLE HEMOLYSIS CHECK 1; SAMPLE ICTERIC CHECK 0; SAMPLE LIPEMIA CHECK 0; SODIUM 139 MEQ/L (136-147); UREA NITROGEN (BUN) 22 mg/dL (9-23)
[2017-07-05 07:29] VITALS: BP 124/63
[2017-07-05 11:27] LABS: POINT-OF-CARE METER ID UU13113725
[2017-07-05 11:50] VITALS: BP 120/56
[2017-07-05 15:52] VITALS: BP 126/59
[2017-07-05 16:13] LABS: POINT-OF-CARE METER ID UU13113725
[2017-07-05 18:55] VITALS: BP 159/72
[2017-07-06 00:48] VITALS: BP 157/69
[2017-07-06 06:34] LABS: BASOPHIL COUNT 0.1 K/uL (0-0.1); EOSINOPHIL (%) 8.1 % (0-5); EOSINOPHIL COUNT 0.6 K/uL (0-0.3); HEMATOCRIT 25.5 % (36.0-46.0); IMMATURE GRANULOCYTE (%) 4.8 % (0.0-0.7); IMMATURE GRANULOCYTE COUNT 0.4 K/uL; INSTRUMENT ABS NEUTROPHIL CT 4.5 K/uL; LYMPHOCYTE COUNT 1.7 K/uL (1.0-2.8); MCH 29.2 PG (29.0-34.0); MCHC 32.5 G/DL (30.0-36.0); MCV 89.8 FL (83-99); MEAN PLAT.VOLUME 9.6 uM^3 (9.5-12.4); MONOCYTE COUNT 0.5 K/uL (0-0.8); NEUTROPHIL (%) 57.6 % (45-76); NEUTROPHIL COUNT 4.5 K/uL (1.8-6.4); PLATELET COUNT 149 K/uL (156-360); RBC DIS.WIDTH-CV 15.1 % (11.8-14.6); RBC DIS.WIDTH-SD 48.9 % (39-53); RED BLOOD COUNT 2.84 M/uL (3.80-5.20); WHITE BLOOD COUNT 7.8 K/uL (4.1-10.2)
[2017-07-06 06:57] LABS: ANION GAP 9 MEQ/L (2-14); CHLORIDE 109 MEQ/L (99-109); GFR ESTIMATE (CALCULATED) 42 mL/min/; GLUCOSE 99 mg/dL (70-99); POTASSIUM 3.8 MEQ/L (3.7-5.4); SAMPLE HEMOLYSIS CHECK 0; SAMPLE ICTERIC CHECK 0; SAMPLE LIPEMIA CHECK 0; SODIUM 142 MEQ/L (136-147); UREA NITROGEN (BUN) 19 mg/dL (9-23)
[2017-07-06 07:15] VITALS: BP 131/60
[2017-07-06] MEDS ORDERED: LOVENOX30 MG/0.3 SC (12:47)
[2017-07-06] MEDS ORDERED: DUONEB 2.5-0.5 M3 ML AEROSOL ×2 (12:47)
[2017-07-06] MEDS ORDERED: BACTRIM,SEPT1 TABLET PO (12:48)
[2017-07-06 15:14] VITALS: BP 101/49
== END 2017-07-06 17:42 | DRG 872 ==
LOC: EME 20:42 → 5EAST 23:13 → EDOF 23:13 → ENRESERV 23:23 → 5EAST 07-01 00:38
PROVIDERS: Emergency Medicine; Family Medicine
DX: A41.9 Sepsis, unspecified organism (principal); N39.0 Urinary tract infection, site not specified; N17.9 Acute kidney failure, unspecified; J44.1 Chronic obstructive pulmonary disease with (acute) exacerbation; I50.9 Heart failure, unspecified; E11.22 Type 2 diabetes mellitus with diabetic chronic kidney disease; F02.80 Dementia in other diseases classified elsewhere, unspecified severity, without behavioral disturbance, psychotic disturbance, mood disturbance, and anxiety; I11.0 Hypertensive heart disease with heart failure; I13.0 Hypertensive heart and chronic kidney disease with heart failure and stage 1 through stage 4 chronic kidney disease, or unspecified chronic kidney disease; G30.9 Alzheimer's disease, unspecified; E78.5 Hyperlipidemia, unspecified; F32.9 Major depressive disorder, single episode, unspecified; N18.9 Chronic kidney disease, unspecified; D64.9 Anemia, unspecified; B96.1 Klebsiella pneumoniae [K. pneumoniae] as the cause of diseases classified elsewhere; B96.4 Proteus (mirabilis) (morganii) as the cause of diseases classified elsewhere; Z87.440 Personal history of urinary (tract) infections; Z87.891 Personal history of nicotine dependence; Z79.4 Long term (current) use of insulin; Z82.0 Family history of epilepsy and other diseases of the nervous system
CPT/HCPCS: 80048; 80053; 81003; 82948; 83605; 85025; 85027; 87040; 87077; 87086; 87186; 94640; 94640 76; 94760; 99202; 99281; 99284; J0714; J1650; J1815; J7030; J7050

== ENCOUNTER 2017-10-20 08:56 | Inpatient (IN) | payer OTHER ==
[~2017-10-20] VITALS: Ht 160 cm; Wt 94.5 kg
[~2017-10-20 08:56] MED LIST changes: +ADVAIR 250/501 DISK IH; +BACTRIM,SEPT1 TABLET PO; +DUONEB 2.5-0.5 M3 ML AEROSOL; +LANTUS 10100 UNITS/ SC; +LOVENOX30 MG/0.3 SC; +NOVOLOG PE100 UNITS/ SC
[2017-10-20 09:18] LABS: POINT-OF-CARE METER ID UU13113702
[2017-10-20 09:44] LABS: BASOPHIL COUNT 0.1 K/uL (0-0.1); EOSINOPHIL (%) 0.1 % (0-5); HEMATOCRIT 38.9 % (36.0-46.0); IMMATURE GRANULOCYTE (%) 1.1 % (0.0-0.7); IMMATURE GRANULOCYTE COUNT 0.3 K/uL; INSTRUMENT ABS NEUTROPHIL CT 21.4 K/uL; LYMPHOCYTE COUNT 1.5 K/uL (1.0-2.8); MCH 29.5 PG (29.0-34.0); MCHC 32.9 G/DL (30.0-36.0); MCV 89.6 FL (83-99); MEAN PLAT.VOLUME 10.1 uM^3 (9.5-12.4); MONOCYTE (%) 3.8 % (3-12); MONOCYTE COUNT 0.9 K/uL (0-0.8); NEUTROPHIL (%) 88.4 % (45-76); NEUTROPHIL COUNT 21.4 K/uL (1.8-6.4); PLATELET COUNT 217 K/uL (156-360); RBC DIS.WIDTH-CV 14.7 % (11.8-14.6); RED BLOOD COUNT 4.34 M/uL (3.80-5.20); WHITE BLOOD COUNT 24.2 K/uL (4.1-10.2)
[2017-10-20 10:08] LABS: TROP-I INTERPRETATION NEGATIVE; TROPONIN-I < 0.01 ng/mL (0.0-0.30)
[2017-10-20 10:28] LABS: ADD MIUA? YES; BILIRUBIN NEGATIVE; BLOOD SMALL; COLOR AMBER ((YELLOW)); GLUCOSE (STRIP) NEGATIVE; KETONES NEGATIVE; LEUKOCYTES LARGE; NITRITE POSITIVE; PROTEIN (STRIP) 100; SPECIFIC GRAVITY 1.016 (1.000-1.030); UROBILINOGEN 0.2 MG/DL (0.2-1.0)
[2017-10-20 10:43] LABS: CHLORIDE 105 mEq/L (99-109); POTASSIUM 4.2 mEq/L (3.7-5.4)
[2017-10-20 10:44] LABS: SODIUM 138 mEq/L (136-147)
[2017-10-20 10:44] LABS: UCUL ADDED? YES; WHITE BLOOD CELLS TNTC /HPF (0-5)
[2017-10-20] MEDS ORDERED: ATORVASTATIN CA40 MG PO (10:44)
[2017-10-20 10:47] LABS: ANION GAP 15 MEQ/L (2-14)
[2017-10-20] MEDS ORDERED: QUESTRAN PACKET4 GM PO (10:47)
[2017-10-20 10:48] LABS: TOTAL BILIRUBIN 0.8 mg/dL (0.0-1.0)
[2017-10-20 10:49] LABS: ALKALINE PHOSPHATASE 76 IU/L (3-129); GFR ESTIMATE (CALCULATED) 28 mL/min/
[2017-10-20] MEDS ORDERED: FERROUS SULFAT325 MG PO (10:49)
[2017-10-20] MEDS ORDERED: DULCOLAX10 MG PR (10:49)
[2017-10-20 10:50] LABS: GLUCOSE 312 mg/dL (70-99)
[2017-10-20] MEDS ORDERED: FLEET ENEMA-AD118 ML PR (10:50)
[2017-10-20 10:51] LABS: UREA NITROGEN (BUN) 29 mg/dL (9-23)
[2017-10-20] MEDS ORDERED: GLUCAGEN1 M1 IM (10:51)
[2017-10-20] MEDS ORDERED: GLUCOSE GEL38 GM PO (10:51)
[2017-10-20] MEDS ORDERED: MILK OF MAGN PO (10:52)
[2017-10-20] MEDS ORDERED: TYLENOL REGULA325 MG PO (10:53)
[2017-10-20 16:00] VITALS: BP 126/58
[2017-10-20 16:11] LABS: POINT-OF-CARE METER ID UU13113702
[2017-10-20 17:36] LABS: C DIFF TOXIN POSITIVE (NEGATIVE)
[2017-10-20 17:43] LABS: PROBE CHECK PASS
[2017-10-20 19:23] VITALS: BP 141/66
[2017-10-20 21:23] LABS: POINT-OF-CARE METER ID UU13113725
[2017-10-21 00:13] VITALS: BP 110/86
[2017-10-21 05:59] LABS: ANION GAP 9 MEQ/L (2-14); GFR ESTIMATE (CALCULATED) 38 mL/min/; POTASSIUM 3.6 MEQ/L (3.7-5.4); SAMPLE HEMOLYSIS CHECK 0; SAMPLE ICTERIC CHECK 0; SAMPLE LIPEMIA CHECK 0; UREA NITROGEN (BUN) 24 mg/dL (9-23)
[2017-10-21 06:00] LABS: BASOPHIL COUNT 0.1 K/uL (0-0.1); CHLORIDE 117 MEQ/L (99-109); EOSINOPHIL (%) 2.2 % (0-5); EOSINOPHIL COUNT 0.4 K/uL (0-0.3); GLUCOSE 133 mg/dL (70-99); IMMATURE GRANULOCYTE (%) 1.1 % (0.0-0.7); IMMATURE GRANULOCYTE COUNT 0.2 K/uL; INSTRUMENT ABS NEUTROPHIL CT 16.2 K/uL; LYMPHOCYTE COUNT 1.2 K/uL (1.0-2.8); MCH 30.4 PG (29.0-34.0); MCHC 32.8 G/DL (30.0-36.0); MCV 92.8 FL (83-99); MEAN PLAT.VOLUME 10.2 uM^3 (9.5-12.4); MONOCYTE (%) 4.6 % (3-12); MONOCYTE COUNT 0.9 K/uL (0-0.8); NEUTROPHIL (%) 85.2 % (45-76); NEUTROPHIL COUNT 16.2 K/uL (1.8-6.4); PLATELET COUNT 154 K/uL (156-360); RBC DIS.WIDTH-CV 15.1 % (11.8-14.6); RBC DIS.WIDTH-SD 51.3 % (39-53); RED BLOOD COUNT 3.45 M/uL (3.80-5.20); SODIUM 145 MEQ/L (136-147)
[2017-10-21 07:13] LABS: POINT-OF-CARE METER ID UU13113725
[2017-10-21 07:59] VITALS: BP 134/58
[2017-10-21 11:22] LABS: POINT-OF-CARE METER ID UU13113725
[2017-10-21 12:57] VITALS: BP 122/61
[2017-10-21 16:28] LABS: POINT-OF-CARE METER ID UU13113725
[2017-10-21 16:33] VITALS: BP 139/67
[2017-10-21 22:04] LABS: POINT-OF-CARE METER ID UU13113774
[2017-10-21 23:44] VITALS: BP 120/56
[2017-10-22 05:35] LABS: BASOPHIL COUNT 0.1 K/uL (0-0.1); EOSINOPHIL (%) 12.3 % (0-5); EOSINOPHIL COUNT 1.8 K/uL (0-0.3); HEMATOCRIT 28.1 % (36.0-46.0); IMMATURE GRANULOCYTE (%) 1.1 % (0.0-0.7); IMMATURE GRANULOCYTE COUNT 0.2 K/uL; INSTRUMENT ABS NEUTROPHIL CT 10.5 K/uL; LYMPHOCYTE COUNT 0.9 K/uL (1.0-2.8); MCH 30.2 PG (29.0-34.0); MCHC 33.1 G/DL (30.0-36.0); MCV 91.2 FL (83-99); MEAN PLAT.VOLUME 10.2 uM^3 (9.5-12.4); MONOCYTE (%) 5.8 % (3-12); MONOCYTE COUNT 0.8 K/uL (0-0.8); NEUTROPHIL (%) 73.7 % (45-76); NEUTROPHIL COUNT 10.5 K/uL (1.8-6.4); PLATELET COUNT 142 K/uL (156-360); RBC DIS.WIDTH-CV 15.3 % (11.8-14.6); RBC DIS.WIDTH-SD 51.1 % (39-53); RED BLOOD COUNT 3.08 M/uL (3.80-5.20); WHITE BLOOD COUNT 14.2 K/uL (4.1-10.2)
[2017-10-22 06:38] LABS: POINT-OF-CARE METER ID UU13113774
[2017-10-22 06:39] LABS: ALKALINE PHOSPHATASE 58 IU/L (3-129); ANION GAP 8 MEQ/L (2-14); CHLORIDE 114 MEQ/L (99-109); GFR ESTIMATE (CALCULATED) 56 mL/min/; GLUCOSE 126 mg/dL (70-99); POTASSIUM 4.1 MEQ/L (3.7-5.4); SAMPLE HEMOLYSIS CHECK 0; SAMPLE ICTERIC CHECK 0; SAMPLE LIPEMIA CHECK 0; SODIUM 141 MEQ/L (136-147); TOTAL BILIRUBIN 0.4 MG/DL (0.0-1.0); UREA NITROGEN (BUN) 23 mg/dL (9-23)
[2017-10-22 07:00] VITALS: BP 138/65
[2017-10-22 11:09] LABS: POINT-OF-CARE METER ID UU13113774
[2017-10-22 15:15] VITALS: BP 126/58
[2017-10-22 16:47] LABS: POINT-OF-CARE METER ID UU13113725
[2017-10-22 21:14] LABS: POINT-OF-CARE METER ID UU13113774
[2017-10-22 23:34] VITALS: BP 139/63
[2017-10-23 05:53] LABS: POINT-OF-CARE METER ID UU13113725
[2017-10-23 07:35] VITALS: BP 127/59
[2017-10-23 11:34] LABS: POINT-OF-CARE METER ID UU13113725
[2017-10-23 15:30] VITALS: BP 149/68
[2017-10-23 16:13] LABS: POINT-OF-CARE METER ID UU13113774
[2017-10-23 21:06] LABS: POINT-OF-CARE METER ID UU13113774
[2017-10-23 23:20] VITALS: BP 144/63
[2017-10-24 05:54] LABS: POINT-OF-CARE METER ID UU13113725
[2017-10-24 06:46] LABS: HEMATOCRIT 29.5 % (36.0-46.0); MCH 29.7 PG (29.0-34.0); MCHC 32.9 G/DL (30.0-36.0); MCV 90.2 FL (83-99); MEAN PLAT.VOLUME 10.2 uM^3 (9.5-12.4); PLATELET COUNT 136 K/uL (156-360); RBC DIS.WIDTH-CV 14.8 % (11.8-14.6); RBC DIS.WIDTH-SD 48.8 % (39-53); RED BLOOD COUNT 3.27 M/uL (3.80-5.20); WHITE BLOOD COUNT 8.2 K/uL (4.1-10.2)
[2017-10-24 08:00] VITALS: BP 137/79
[2017-10-24 11:36] LABS: POINT-OF-CARE METER ID UU13113725
[2017-10-24 15:41] LABS: POINT-OF-CARE METER ID UU13113725
[2017-10-24 16:00] VITALS: BP 149/50
[2017-10-24 21:57] LABS: POINT-OF-CARE METER ID UU13113725
[2017-10-24 23:22] VITALS: BP 131/61
[2017-10-25 06:19] LABS: POINT-OF-CARE METER ID UU13113774
[2017-10-25 07:14] VITALS: BP 132/68
[2017-10-25 11:10] LABS: POINT-OF-CARE METER ID UU13113774
[2017-10-25 11:24] LABS: ANION GAP 9 MEQ/L (2-14); CHLORIDE 106 MEQ/L (99-109); GFR ESTIMATE (CALCULATED) > 59 mL/min/; GLUCOSE 194 mg/dL (70-99); POTASSIUM 3.8 MEQ/L (3.7-5.4); SAMPLE HEMOLYSIS CHECK 0; SAMPLE ICTERIC CHECK 0; SAMPLE LIPEMIA CHECK 0; SODIUM 138 MEQ/L (136-147); UREA NITROGEN (BUN) 10 mg/dL (9-23)
[2017-10-25] MEDS ORDERED: VANCOCIN HCL125 MG PO (15:02)
[2017-10-25 16:19] LABS: POINT-OF-CARE METER ID UU13113774
[2017-10-25 17:27] VITALS: BP 134/66
== END 2017-10-25 17:30 | DRG 871 ==
LOC: EME 08:56 → 5EAST 13:14 → EDOF 13:14 → ENRESERV 13:33 → 5EAST 16:33
PROVIDERS: Emergency Medicine; Internal Medicine
DX: A41.9 Sepsis, unspecified organism (principal); G93.40 Encephalopathy, unspecified; A04.72 Enterocolitis due to Clostridium difficile, not specified as recurrent; E87.2 Acidosis; N39.0 Urinary tract infection, site not specified; N17.9 Acute kidney failure, unspecified; F05 Delirium due to known physiological condition; F33.9 Major depressive disorder, recurrent, unspecified; D63.8 Anemia in other chronic diseases classified elsewhere; E66.9 Obesity, unspecified; R32 Unspecified urinary incontinence; N18.9 Chronic kidney disease, unspecified; J43.9 Emphysema, unspecified; I48.91 Unspecified atrial fibrillation; I25.10 Atherosclerotic heart disease of native coronary artery without angina pectoris; I12.9 Hypertensive chronic kidney disease with stage 1 through stage 4 chronic kidney disease, or unspecified chronic kidney disease; G30.9 Alzheimer's disease, unspecified; F02.80 Dementia in other diseases classified elsewhere, unspecified severity, without behavioral disturbance, psychotic disturbance, mood disturbance, and anxiety; E11.22 Type 2 diabetes mellitus with diabetic chronic kidney disease; E78.5 Hyperlipidemia, unspecified; F41.9 Anxiety disorder, unspecified; Z16.24 Resistance to multiple antibiotics; I95.9 Hypotension, unspecified; R00.0 Tachycardia, unspecified; R65.11 Systemic inflammatory response syndrome (SIRS) of non-infectious origin with acute organ dysfunction; Z68.36 Body mass index [BMI] 36.0-36.9, adult; Z90.710 Acquired absence of both cervix and uterus; Z87.891 Personal history of nicotine dependence; Z87.440 Personal history of urinary (tract) infections
CPT/HCPCS: 71010; 80048; 80053; 81003; 82948; 83605; 84484; 85025; 85025 91; 85027; 87040; 87077; 87086; 87186; 87493; 93005; 94640; 94640 76; 99202; 99281; 99285; J1644; J1815; J2405; J2543; J3243; J3370; J7030; J7050; S0030

== ENCOUNTER 2017-12-14 20:52 | Emergency (ER) | payer OTHER ==
[~2017-12-14] VITALS: Ht 157.5 cm; Wt 85.0 kg
[~2017-12-14 20:52] MED LIST changes: +ATORVASTATIN CA40 MG PO; +DULCOLAX10 MG PR; +FERROUS SULFAT325 MG PO; +FLEET ENEMA-AD118 ML PR; +GLUCAGEN1 M1 IM; +GLUCOSE GEL38 GM PO; +MILK OF MAGN PO; +QUESTRAN PACKET4 GM PO; +TYLENOL REGULA325 MG PO; +VANCOCIN HCL125 MG PO
[2017-12-15 00:15] VITALS: BP 105/57
== END 2017-12-15 00:10 ==
LOC: EME → EDBD 20:52 → EME 12-15 00:10
DX: I95.9 Hypotension, unspecified (principal); J44.9 Chronic obstructive pulmonary disease, unspecified; I25.10 Atherosclerotic heart disease of native coronary artery without angina pectoris; F03.90 Unspecified dementia, unspecified severity, without behavioral disturbance, psychotic disturbance, mood disturbance, and anxiety; I10 Essential (primary) hypertension; E78.5 Hyperlipidemia, unspecified; E11.9 Type 2 diabetes mellitus without complications; F41.9 Anxiety disorder, unspecified; F32.9 Major depressive disorder, single episode, unspecified; Z87.891 Personal history of nicotine dependence; Z79.4 Long term (current) use of insulin; Z88.1 Allergy status to other antibiotic agents
CPT/HCPCS: 71045; 81003; 93005

== ENCOUNTER 2018-04-29 05:34 | Inpatient (IN) | payer OTHER ==
[~2018-04-29] VITALS: Ht 170.2 cm; Wt 95.5 kg
[2018-04-29 06:09] LABS: HEMOGLOBIN 10.3 G/DL (11.9-15.5); MCH 32.8 PG (29.0-34.0); MCHC 34.3 G/DL (30.0-36.0); MCV 95.5 FL (83-99); PLATELET COUNT 151 K/uL (156-360); RBC DIS.WIDTH-CV 14.3 % (11.8-14.6); RBC DIS.WIDTH-SD 49.7 % (39-53); RED BLOOD COUNT 3.14 M/uL (3.80-5.20); WHITE BLOOD COUNT 8.6 K/uL (4.1-10.2)
[2018-04-29 06:20] LABS: ALBUMIN 3.4 g/dL (3.2-4.8); CHLORIDE 106 mEq/L (99-109); POTASSIUM 4.4 mEq/L (3.7-5.4); SODIUM 139 mEq/L (136-147)
[2018-04-29 06:22] LABS: GLUCOSE 151 mg/dL (70-99); TOTAL PROTEIN 5.8 g/dL (6.4-8.3)
[2018-04-29 06:24] LABS: TOTAL BILIRUBIN 0.5 mg/dL (0.0-1.0)
[2018-04-29 06:26] LABS: ALKALINE PHOSPHATASE 69 IU/L (3-129); CREATININE 1.5 mg/dL (0.6-1.3); GFR ESTIMATE (CALCULATED) 35 mL/min/
[2018-04-29 06:27] LABS: UREA NITROGEN (BUN) 31 mg/dL (9-23)
[2018-04-29 06:28] LABS: AST (GOT) 13 IU/L (2-34)
[2018-04-29 06:29] LABS: ALT (GPT) 16 IU/L (3-49); LIPASE 14 U/L (1.0-51.0)
[2018-04-29 06:30] LABS: TROP-I INTERPRETATION NEGATIVE; TROPONIN-I < 0.01 ng/mL (0.0-0.30)
[2018-04-29] MEDS ORDERED: ATARAX10 MG PO (07:20)
[2018-04-29] MEDS ORDERED: QUESTRAN PACKET4 GM PO (07:23)
[2018-04-29] MEDS ORDERED: GLUCOSE GEL38 GM PO (07:26)
[2018-04-29 07:43] LABS: INTER. NORMALIZED RATIO 1.4
[2018-04-29 07:46] LABS: PTT 25.3 SEC (25-37)
[2018-04-29 09:39] LABS: APPEARANCE CLOUDY ((CLEAR)); BILIRUBIN NEGATIVE; BLOOD NEGATIVE; GLUCOSE (STRIP) NEGATIVE; KETONES 5; LEUKOCYTES SMALL; NITRITE NEGATIVE; PROTEIN (STRIP) 100; SPECIFIC GRAVITY 1.017 (1.000-1.030)
[2018-04-29 09:43] LABS: COLOR DK YELLOW ((YELLOW))
[2018-04-29 09:55] LABS: BACTERIA 3+ /HPF; EPITHELIAL CELLS 1+ /HPF; MUCUS NONE SEEN /LPF; RED BLOOD CELLS 0-5 /HPF (0-5); WHITE BLOOD CELLS TNTC /HPF (0-5)
[2018-04-29 14:25] VITALS: BP 134/58
[2018-04-29 15:45] LABS: TROP-I INTERPRETATION NEGATIVE; TROPONIN-I < 0.01 ng/mL (0.0-0.30)
[2018-04-29 17:32] VITALS: BP 112/72
[2018-04-29 17:46] VITALS: BP 98/55
[2018-04-29 20:09] VITALS: BP 137/73
[2018-04-29 20:35] VITALS: BP 130/65
[2018-04-29 21:14] LABS: BASOPHIL (%) 0.8 % (0-1); BASOPHIL COUNT 0.1 K/uL (0-0.1); EOSINOPHIL (%) 5.4 % (0-5); EOSINOPHIL COUNT 0.6 K/uL (0-0.3); HEMOGLOBIN 11.1 G/DL (11.9-15.5); IMMATURE GRANULOCYTE (%) 2.3 % (0.0-0.7); LYMPHOCYTE (%) 10.8 % (15-42); LYMPHOCYTE COUNT 1.2 K/uL (1.0-2.8); MCH 31.5 PG (29.0-34.0); MCHC 32.6 G/DL (30.0-36.0); MCV 96.6 FL (83-99); MONOCYTE (%) 5.8 % (3-12); MONOCYTE COUNT 0.7 K/uL (0-0.8); NEUTROPHIL (%) 74.9 % (45-76); NEUTROPHIL COUNT 8.6 K/uL (1.8-6.4); PLATELET COUNT 151 K/uL (156-360); RBC DIS.WIDTH-CV 14.4 % (11.8-14.6); RBC DIS.WIDTH-SD 50.4 % (39-53); RED BLOOD COUNT 3.52 M/uL (3.80-5.20); WHITE BLOOD COUNT 11.4 K/uL (4.1-10.2)
[2018-04-29 21:32] LABS: ALBUMIN 3.8 G/DL (3.2-4.8); ALKALINE PHOSPHATASE 58 IU/L (3-129); ALT (GPT) 12 IU/L (3-49); AST (GOT) 12 IU/L (2-34); CHLORIDE 108 MEQ/L (99-109); CREATININE 1.3 MG/DL (0.6-1.3); DIRECT BILIRUBIN 0.1 mg/dL (0.0-0.3); GFR ESTIMATE (CALCULATED) 41 mL/min/; GLUCOSE 152 mg/dL (70-99); MAGNESIUM 1.7 mg/dl (1.3-2.7); PHOSPHORUS 4.5 mg/dL (2.5-4.9); POTASSIUM 4.6 MEQ/L (3.7-5.4); SODIUM 140 MEQ/L (136-147); TOTAL BILIRUBIN 0.4 MG/DL (0.0-1.0); TOTAL PROTEIN 6.5 G/DL (6.4-8.3); UREA NITROGEN (BUN) 32 mg/dL (9-23)
[2018-04-29 21:34] LABS: TROP-I INTERPRETATION NEGATIVE; TROPONIN-I < 0.01 ng/mL (0.0-0.30)
[2018-04-29 23:19] VITALS: BP 113/55
[2018-04-30 07:15] VITALS: BP 152/92
[2018-04-30 07:52] LABS: THYROTROPIN (TSH) 3.1 MIU/L (0.4-5.5)
[2018-04-30 11:52] VITALS: BP 134/88
[2018-04-30 16:32] VITALS: BP 138/60
[2018-04-30 20:09] VITALS: BP 143/65
[2018-05-01 00:26] VITALS: BP 125/59
[2018-05-01 04:16] VITALS: BP 135/67
[2018-05-01 07:12] VITALS: BP 143/65
[2018-05-01 11:23] VITALS: BP 138/67
[2018-05-01 16:20] VITALS: BP 134/73; BP 160/95
[2018-05-01 19:57] VITALS: BP 136/65
[2018-05-02] VITALS (7 sets, daily range): BP systolic 134–189; BP diastolic 67–80
[2018-05-02 07:10] LABS: CREATININE 0.9 MG/DL (0.6-1.3); GFR ESTIMATE (CALCULATED) > 59 mL/min/
[2018-05-03 04:44] VITALS: BP 124/69
[2018-05-03 07:18] VITALS: BP 188/72
[2018-05-03 11:36] VITALS: BP 153/66
[2018-05-03 12:33] LABS: HEMATOCRIT 33.4 % (36.0-46.0); HEMOGLOBIN 11.4 G/DL (11.9-15.5); MCH 31.8 PG (29.0-34.0); MCHC 34.1 G/DL (30.0-36.0); PLATELET COUNT 155 K/uL (156-360); RBC DIS.WIDTH-CV 13.7 % (11.8-14.6); RBC DIS.WIDTH-SD 46.5 % (39-53); RED BLOOD COUNT 3.59 M/uL (3.80-5.20); WHITE BLOOD COUNT 8.3 K/uL (4.1-10.2)
[2018-05-03 12:57] LABS: ALBUMIN 3.8 G/DL (3.2-4.8); ALKALINE PHOSPHATASE 65 IU/L (3-129); ALT (GPT) 10 IU/L (3-49); AST (GOT) 12 IU/L (2-34); CHLORIDE 99 MEQ/L (99-109); CREATININE 0.9 MG/DL (0.6-1.3); GFR ESTIMATE (CALCULATED) > 59 mL/min/; GLUCOSE 181 mg/dL (70-99); POTASSIUM 3.8 MEQ/L (3.7-5.4); SODIUM 137 MEQ/L (136-147); TOTAL BILIRUBIN 0.4 MG/DL (0.0-1.0); TOTAL PROTEIN 6.4 G/DL (6.4-8.3); UREA NITROGEN (BUN) 14 mg/dL (9-23)
[2018-05-03 15:56] VITALS: BP 168/68
[2018-05-03 19:30] VITALS: BP 147/68
[2018-05-03 23:05] VITALS: BP 120/58
[2018-05-04 04:00] VITALS: BP 101/58
[2018-05-04 07:34] VITALS: BP 126/59
[2018-05-04 11:27] VITALS: BP 119/65
[2018-05-04 16:46] VITALS: BP 125/70
[2018-05-04 18:54] VITALS: BP 110/51
[2018-05-04 22:36] VITALS: BP 119/57
[2018-05-05 07:25] VITALS: BP 131/58
[2018-05-05] MEDS ORDERED: ZITHROMAX500 MG PO (08:23)
[2018-05-05] MEDS ORDERED: AUGMENTIN875 MG PO (08:23)
[2018-05-05 12:04] VITALS: BP 129/69
== END 2018-05-05 12:20 | DRG 314 ==
LOC: EME → EDBD 05:34 → EME 05:34 → EDOF 07:04 → 5EAST 07:04 → ENRESERV 07:13 → 5EAST 14:00
PROVIDERS: Emergency Medicine; Hospitalist; Internal Medicine
DX: I95.9 Hypotension, unspecified (principal); R00.1 Bradycardia, unspecified; E87.5 Hyperkalemia; E11.9 Type 2 diabetes mellitus without complications; G93.40 Encephalopathy, unspecified; J44.9 Chronic obstructive pulmonary disease, unspecified; F03.90 Unspecified dementia, unspecified severity, without behavioral disturbance, psychotic disturbance, mood disturbance, and anxiety; I25.10 Atherosclerotic heart disease of native coronary artery without angina pectoris; N17.9 Acute kidney failure, unspecified; I48.91 Unspecified atrial fibrillation; R09.02 Hypoxemia; E87.2 Acidosis; I49.5 Sick sinus syndrome; N39.0 Urinary tract infection, site not specified; E78.5 Hyperlipidemia, unspecified; J18.9 Pneumonia, unspecified organism; F32.9 Major depressive disorder, single episode, unspecified; F02.80 Dementia in other diseases classified elsewhere, unspecified severity, without behavioral disturbance, psychotic disturbance, mood disturbance, and anxiety; Z51.5 Encounter for palliative care; I50.30 Unspecified diastolic (congestive) heart failure; I11.0 Hypertensive heart disease with heart failure; N12 Tubulo-interstitial nephritis, not specified as acute or chronic; G30.9 Alzheimer's disease, unspecified; D64.9 Anemia, unspecified; E66.9 Obesity, unspecified; I34.0 Nonrheumatic mitral (valve) insufficiency; F41.9 Anxiety disorder, unspecified; Z68.32 Body mass index [BMI] 32.0-32.9, adult; Z66 Do not resuscitate; Z88.1 Allergy status to other antibiotic agents; Z90.710 Acquired absence of both cervix and uterus; Z87.891 Personal history of nicotine dependence; Z87.440 Personal history of urinary (tract) infections
CPT/HCPCS: 70450; 71045; 71046; 71250; 74176; 80053; 81003; 82140; 82248; 82565; 82803; 82948; 83605; 83690; 83735; 83880; 84100; 84439; 84443; 84484; 85025; 85027; 85610; 85730; 87040; 87086; 92610 GN; 93005; 94640; 94799; 97530 GP; 99202; 99281; 99285; J0456; J0461; J0696; J1650; J1815; J1940; J2270; J2310; J7030; J7040; S0028